=== PATIENT | male | born 1995 | race African-American/Black ===

== ENCOUNTER 2023-08-09 05:15 | Emergency (ER) | payer MEDICAID ==
[~2023-08-09] VITALS: Ht 185.4 cm; Wt 87.5 kg
[2023-08-09 05:23] VITALS: BP_SYST 120; PULSE 51; RESP 16; TEMP 98.8; O2SAT 100
[2023-08-09] MEDS ORDERED: OFLO5DRO6 LEFT EYE (05:28)
[2023-08-09 05:37] VITALS: BP_SYST 120; PULSE 51; RESP 16; TEMP 98.8; O2SAT 100
== END 2023-08-09 05:32 | disposition home or self-care (01) ==
LOC: SED 05:15
DX: H10.32 Unspecified acute conjunctivitis, left eye (principal); M79.652 Pain in left thigh
CPT/HCPCS: 99283